=== PATIENT | male | born 1960 | race Caucasian/White ===

== ENCOUNTER 2023-04-12 15:45 | Emergency (ER) | payer OTHER ==
--- OUTSIDE RECORDS SUMMARY | 2023-04-12 15:53 | XMS REPORT | Continuity of Care Document ---
:1960 Author Organization [facility] t Address [address] [place] [address] Care Team Providers Name Role Phone Geremias Maravilla Attending Clinician Michael KAPLAN, Stoney Plummer Attending Clinician [phone] GEREMIAS TOTH Attending Clinician Unavailable Wilver KAPLAN, David Rossi Attending Clinician DAVID PETTIT Attending Clinician Unavailable Michael KAPLAN, Stoney Plummer Admitting Clinician [phone] Payers Payer Name Policy Type Policy Number Effective Date Expiration Date S pasquale MEDICARE PART A [id number] 2012 00:00:00 Problems Condition Condition Condition Status Onset Resolution Last Treating Co mments Source Name Details Category Date Date Treatment Clinician Date Stroke-lik Stroke-lik Disease Active 2020-0 U nivers e symptoms e symptoms 07-05 it y of 00:00: [address] No known No known Disease Unive rs active active ity of problems problems [facility] Allergies, Adverse Reactions, Alerts Allergy Allergy Status Severity Reaction(s) Onset Inactive Treating Comm ents Source Name Type Date Date Clinician TOMATO DRUG Active N/V 2020-0 Univers INGREDI 07-05 ity of 00:00: [place] [facility] VARENICL DRUG Active Hallucinates 2020-0 Un morelia INE INGREDI 07-05 ity of 00:00: 00 [facility] Varenicl Propensi Active Hallucinatio 2020-0 Univers ine ty to ns 07-05 ity of adverse 00:00: [place] reaction 00 [facility] Tomato Propensi Active Nausea 2020-0 Univers ty to and/or 07-05 ity of adverse Vomiting 00:00: [place] reaction 00 [facility] Seafood/ Propensi Active Anaphylaxis 2020-0 U nivers Fish ty to 07-04 ity of adverse 00:00: [place] reaction 00 Medical s Branch SEAFOOD/ Food Active Anaphylaxis 2020-0 Uni vers FISH 07-04 ity of 00:00: [place] 00 Medical Branch Social History Social Habit Start Date Stop Date Quantity Comments Source Sex Assigned At [facility] Exposure to Not sure [facility] SARS-CoV-2 (event) [facility] Tobacco use and 2020-07-05 2020-07-05 Never used [facility] exposure 00:00:00 00:00:00 Medical Branch History VTOH 2020-07-05 2020-07-05 21 University o [facility] [place] [facility] Education 00:00:00 00:00:00 Medical Branch History [facility] 2020-07-05 2020-07-05 3 [place] o [facility] [place] [facility] Financial 00:00:00 00:00:00 [facility] Branch Smoking Status Start Date Stop Date Source Current every day smoker 2020-07-05 00:[facility] Unknown if ever smoked [facility] Medications Ordered Filled Start Stop Current Ordering Indication Dosage Frequency Signature Comments Components Source Medication Medication Date Date Medication? Clinician (SIG) Name Name aspirin 2020-0 Yes 81mg 81 mg, Univers chewable 930 Oral, ity of tablet 81 14:00: DAILY, [place] mg 00 First dose Medical on Sat07/06/20 at 0900, Until Discontinu ed, Routine clopidogreL 2020-0 Yes 75mg 75 mg, Univ ers (PLAVIX) 9-30 Oral, ity of tablet 75 14:00: DAILY, [place] mg 00 First dose Medical on Sat07/06/20 at 0900, Until Discontinu ed, Routine atorvastati 2020-0 Yes 80mg 80 mg, Univ ers n (LIPITOR) 9-30 Oral, QHS, it y of tablet 80 02:00: [place] 00 (after Medical last Branch modificati on) on Sat07/05/20 at 2100, Until Discontinu ed, Routine famotidine 2020-0 Yes 20mg 20 mg, Unive rs (PEPCID AC) 9-30 Oral, BID, it y of tablet 20 01:00: [place] 00 on Sat07/05/20 at Branch 2000, Until Discontinu ed, Routine heparin 2020-0 Yes 5000U 5,000 Univers (porcine) 9-30 Units, ity of injection 01:00: [place]cutaneo [place] 5,000 Units 00 us, Q12H, Med ical First dose Branch on Sat07/05/20 at 2000, Until Discontinu ed, Routine aspirin 81 2020-0 Yes [id number] 81mg Take 1 U nivers mg chewable 9-30 tablet by ity of tablet 00:00: mouth [place] 00 daily. Medical Branch clopidogreL 2019-0 Yes [id number] 75mg Take 1 Univers 75 mg 9-30 tablet by ity of tablet 00:00: mouth [place] 00 daily. Medical Branch aspirin 2019-0 2020- No 325mg 325 mg, Unive rs tablet 325 07-05 Oral, ONCE it y of mg 23:45: 23:03 NOW, 1 [place] 00 :00 dose, [facility] Medical 07/05/20 at Branch 1845, DAVID NaCl 0.9% 0 Yes 1000mL at 75 Unive rs (NS) IV 9- mL/hr, IV ity of infusion 20:45: Infusion, [place] 1[place]000 mL 00 CONTINUOUS Medic al , Starting Branch [facility] 07/05/20 at 1545, Until Discontinu ed, Routine
To keep vein open.
labetaloL 0 Yes 10mg 10 mg, Univer s (NORMODYNE) 07-05 Slow IV ity o f injection 20:38: Push, PRN, [place] 10 mg 40 Starting Medical [facility] Branch 07/05/20 at 1538, Until Discontinu ed, Routine, Hypertensi on SBP > 220 and DBP > 110 iohexol 2019- No 100mL 100 mL, Unive rs (OMNIPAQUE 07-05 Intravenou it y of 350 05:45: 06:00 s, ONCE, 1 [place] BULK-100 00 :00 dose, [facility] Medica l mL) 07/05/20 at Branch injection 0100, 100 mL Routine NaCl 0.9% 0 2020- No 1000mL at 999 Uni vers (NS) bolus 07-05 mL/hr, ity of infusion 05:30: 06:48 1,000 mL, Gil as 1,000 mL 00 :00 IV Medical Infusion, Branch ONCE, 1 dose, [facility] 07/05/20 at 0030, DAVID meclizine 2020- No 25mg 25 mg, Unive rs (TRAVEL-EAS 07-05 Oral, ity of E 02:45: 02:00 ONCE, 1 [place] (MECLIZINE) 00 :00 dose, Mon Med ical ) tablet 25 07/04/20 at Br anch mg 2145, DAVID meclizine Yes [id number] 25mg Take 1 U nivers 25 mg 07-05 tablet by ity of tablet 00:00: mouth [place] 00 every 6 Medical (six) Branch hours. atorvastati Yes [id number] 80mg Take 1 Univers n 80 mg 07-05 tablet by ity of tablet 00:00: mouth at [place] 00 bedtime. Medical Branch meclizine 2020- No [id number] 25mg Take 1 Univers 25 mg 07-05 tablet by ity of tablet 00:00: 00:00 mouth [place] 00 :00 every 6 Medical (six) Branch hours. No known No Univers medications [facility] [place] [facility] Vital Signs Vital Name Observation Time Observation Value Comments Source Systolic blood 2020-07-05 20:27:00 151 mm[Hg] Univer sity [facility] Diastolic blood 2020-07-05 20:27:00 83 mm[facility]Hg[facility] 2020-07-05 20:27:00 58 /min [facility] Body temperature 2020-07-05 20:27:00 36.56 Zenaida [facility] Respiratory rate 2020-07-05 20:27:00 18 /min [facility] Oxygen saturation in 2020-07-05 20:27:00 98 /min [facility] Arterial blood by [facility] Pulse oximetry Branch Body weight 2020-07-05 15:23:00 95.255 kg [facility] Systolic blood 2020-07-05 04:59:00 147 mm[Hg] Univer sity [facility] Diastolic blood 2020-07-05 04:59:00 86 mm[Hg] Unive rsity [facility] Heart rate 2020-07-05 04:59:00 53 /min [facility] Body temperature 2020-07-05 04:59:00 37.17 Zenaida [facility] Respiratory rate 2020-07-05 04:59:00 12 /min [facility] Body weight 2020-07-05 04:59:00 99.791 kg [facility] Oxygen saturation in 2020-07-05 04:59:00 97 /min [facility] Arterial blood by [facility] Pulse oximetry Branch Systolic blood 2020-07-05 03:30:00 148 mm[Hg] Univer sity of pressure [facility] Diastolic blood 2020-07-05 03:30:00 94 mm[Hg] [facility] Heart rate 2020-07-05 03:30:00 50 /min [facility] Respiratory rate 2020-07-05 03:30:00 14 /min [facility] Oxygen saturation in 2020-07-05 03:30:00 97 /min [facility] Arterial blood by [facility] Pulse oximetry Branch Body temperature 2020-07-05 01:20:00 35.83 Zenaida [facility] Body weight 2020-07-05 01:20:00 99.791 kg [facility] Procedures Procedure Date / Time Performing Clinician Source Performed TROPONIN I 2020-07-05 18:45:00 Geremias Toth [facility] THYROID STIMULATING 2020-07-05 18:45:00 Alcala Durga [facility] HORMONE [facility] HEPATIC FUNCTION PANEL 2020-07-05 18:45:00 TothGeremias pacheco [facility] ([id number]) (ALB,T.PRO,BILI [facility] Branch T,BU/BC,ALT,AST,ALK PHOS) BASIC METABOLIC PANEL 2020-07-05 18:45:00 TothGeremias pacheco [facility] (NA, K, CL, CO2, Medical Branch GLUCOSE, BUN, CREATININE, CA) EKG-12 LEAD 2020-07-05 17:09:45 Greemias Toth [facility] CONSENT/REFUSAL FOR 2020-07-05 14:59:14 Doctor Unassigned, No Un [facility] DIAGNOSIS AND TREATMENT Name Medical [place] [facility] ANGIOGRAM HEAD 2020-07-05 05:44:53 David Pettit [facility] CT ANGIOGRAM NECK 2020-07-05 05:44:53 David Pettit [facility] NOTICE OF PRIVACY 2020-07-05 04:54:35 Doctor Unassigned, No [facility] PRACTICES Name Medical Branch CONSENT/REFUSAL FOR 2020-07-05 04:54:13 Doctor Unassigned, No [facility] DIAGNOSIS AND TREATMENT Name Medical Branch COVID-19 (ID NOW RAPID 2020-07-05 02:46:00 David Pettit [facility] TESTING) Medical Branch CT HEAD WO CONTRAST 2020-07-05 01:57:03 David Pettit [facility] TROPONIN I 2020-07-05 01:49:00 David Pettit [facility] BASIC METABOLIC PANEL 2020-07-05 01:49:00 David Pettit [facility] (NA, K, CL, CO2, Medical Branch GLUCOSE, BUN, CREATININE, CA) CBC WITH DIFF 2020-07-05 01:49:00 David Pettit [facility] N-TERMINAL PRO-BNP 2020-07-05 01:49:00 David Pettit [facility] GLYCOSYLATED HEMOGLOBIN 2020-07-05 01:49:00 Durga Tse [facility] (A1C) [facility] Branch CONSENT/REFUSAL FOR 2020-07-05 01:15:15 Doctor Unassigned, No Un [facility] DIAGNOSIS AND TREATMENT Name Medical Branch Encounters Start End Encounter Admission Attending Care Care Encounter Source Date/Time Date/Time Type Type Clinicians Facility Department ID 2020-07-05 2020-07-05 Geremias Pan [id number] Univers 10:27:00 19:00:00 [facility] [place] as [id number] [facility] 09 Branch 2020-07-05 2020-07-05 Emergency Kenroy TOTH [facility] ERT [id number] Univers 10:27:00 10:27:00 GEREMIAS العراقي [facility] 2020-07-04 2020-07-05 Emergency [facility] [id number] Univers 23:56:00 01:55:00 David Vides [id number] i ty of [place] 4.2.7.2.686 [facility] [id number] [address] 2020-07-04 2020-07-04 [facility] [id number] Univers 23:56:00 23:56:00 General acute hospital 2020-07-04 2020-07-04 Emergency [facility] [id number] Univers 20:13:00 23:50:00 David Vides [id number] i ty [facility] 4.2.7.2.686 [facility] [id number] [address] 2020-07-04 2020-07-04 Emergency [facility] [id number] Univers 20:13:00 20:13:00 General acute hospital Results Test Description Test Time Test Comments Results Result Comments Source THYROID STIMULATING HORMONE 2020-07-06 00:18:00 Test Item Value Reference Range Interpretation Comme nts TSH (test code = 8116001531) See_Comment Biotin has been reported to cause a negative bias , interpret results relativ e to patient's use of biotin. [Aut omated message] The system [employer] generated this result transmit danny reference range: 0.45 - 4 .70 mIU/L. The reference range was not used to interpret this result as normal/abnormal . Lab Interpretation (test code = Normal 57889-8) [facility] H[facility]GLOB[facility] (A1C)2020-07-06 00:04:00 Test Item Value Reference Range Interpretation Comments HGB A1C (test code = 5.0 % 4-6 4548-4) JOSE (test code = JOSE) %A1C (NGSP) Interpretation (ADA)4.8-5.6 ? ? Normal or (Non-Diabetic Range)5.7-6.4 ? ? Increased Risk (Pre-Diabetic)>6.5 ?Diabetes Indicated Lab Interpretation Normal (test code = 18284-2) [facility] (ALB, T.PRO, BILI T, BU/BC, ALT, AST, ALK PHOS)2020-07-05 19:38:00 Test Item Value Reference Range Interpretation Comments TOTAL BILI (test code = 1022343271) 0.7 mg/dL 0.1-1.1 BILI UNCON (test code = 3365661255) 0.7 mg/dL 0.1-1.1 BILI CONJ (test code = 7411516256) 0.0 mg/dL 0-0.3 T PROTEIN (test code = 3589309589) 7.8 g/dL 6.3-8.2 ALBUMIN (test code = 7702924009) 4.3 g/dL 3.5-5 ALK PHOS (test code = 0534288264) 56 U/L 34-122 ALTv (test code = 1742-6) 25 U/L 5-50 AST(SGOT) (test code = 6949642239) 35 U/L 13-40 Lab Interpretation (test code = Normal 66521-5) [facility] [id number] 19:35:00 Test Item Value Reference Range Interpretation Comments TROPONIN I (test <0.012 See_Comment [Automated code = 9719109302) message] The system which generated this result transmitted reference range : <=0.034 ng/mL. The reference range was not used to interpr et this result as normal/abnormal . JOSE (test code = Equal or Less than JOSE) 0.034 ng/ml---Normal ?Note: Cardiac troponin begins to rise 3-4 hours after the onset of ischemia. Repeat in 4-6 hours if the sample was drawn within 3-4 hours of the onset of the symptom and found normal. Between 0.035 and 0.120 ng/mL--- Borderline. Questionable myocardial injury or necrosis ? ?Note: Serial measurement may be necessary to confirm or exclude the diagnosis of myocardial injury or necrosis; Clinical correlation (symptoms, EKGs, imaging studies, and others) required; Repeat in 4-6 hours if clinically indicated. ? Equal or Higher than 0.121 ng/mL---Abnormal. Myocardial Injury or Necrosis Likely ? Biotin has been reported to cause a negative bias, interpret results relative to patient's use of biotin. ? Lab Interpretation Normal (test code = 42072-9) [facility] Metabolic Panel (NA, K, CL, CO2, GLUCOSE, BUN, CREATININE, CA)2020-07-05 19:24:00 Test Item Value Reference Range Interpretation Comments NA (test code = 137 mmol/L 135-145 8341487743) K (test code = 4.6 mmol/L 3.5-5 4831122495) CL (test code = 99 mmol/L 98-108 4312545129) CO2 TOTAL (test code = 30 mmol/L 23-31 2039661122) AGAP (test code = 2-16 5653877662) BUN (test code = 21 mg/dL 7-23 0413008763) GLUCOSE (test code = 116 mg/dL 70-110 H 7803409631) CREATININE (test code = 0.80 mg/dL 0.6-1.25 6766751499) CALCIUM (test code = 9.5 mg/dL 8.6-10.6 9119808512) eGFR Calculation mL/min/1.73m2 (Non-) (test code = 4649233604) eGFR Calculation mL/min/1.73m2 () (test code = 6593003435) JOSE (test code = JOSE) Association of Glomerular Filtration Rate (GFR) and Staging of Kidney Disease* + --+ --+ ------+| GFR (mL/min/1.73 m2) ?| With Kidney Damage ?| ?Without Kidney Damage+ --------+ --------+ +| ?>90 ?| ?Stage one ?| ? Normal ?+ ---+ ---+ -------+| ?60-89 ?| ?Stage two ?| ? Decreased GFR ? + --+ --+ ------+| ?30-59 ?| ?Stage three ?| ? Stage three ? + --+ --+ ------+| ?15-29 ?| ?Stage four ? | ? Stage four ?+ ---+ ---+ -------+| ?<15 (or dialysis) ? ?| ?Stage five ? | ? Stage five ?+ ---+ ---+ -------+ *Each stage assumes the associated GFR level has been in effect for at least three months. ?Stages 1 to 5, with or without kidney disease, indicate chronic kidney disease. Notes: Determination of stages one and two (with eGFR >59mL/min/1.73 m2) requires estimation of kidney damage for at least three months as defined by structural or functional abnormalities of the kidney, manifested by either:Pathological abnormalities or Markers of kidney damage (including abnormalities in the composition of the blood or urine or abnormalities in imaging tests). Lab Interpretation Abnormal (test code = 02260-4) [facility] (ID NOW RAPID TESTING)2020-07-05 03:54:00 Test Item Value Reference Range Interpretation Comments SARS-CoV-2 Rapid ID NOW Not Detected Not Detected (test code = 62422-2) JOSE (test code = JOSE) ID NOW COVID-19 Assay is an isothermal nucleic acid amplification test intended for the qualitative detection of nucleic acid from SARS-CoV-2 viral RNA in nasopharyngeal (CHOIR MEMBER) specimens. It is used under Emergency Use Authorization (EUA) by FDA. The limit of detection (LOD) of the assay is 125 Genome Equivalents/mL. A positive result is indicative of the presence of SARS-CoV-2 RNA. ?Clinical correlation with patient history and other diagnostic information is necessary to determine patient infection status. A negative (Not Detected) result does not preclude SARS-CoV-2 infection. In patients with clinical symptoms and other tests that are consistent with SARS-CoV-2 infection, negative results should be treated as presumptive negative and a new specimen should be tested with alternative PCR molecular test. Invalid: Please collect a new specimen for repeat patient testing if clinically indicated. Lab Interpretation Normal (test code = 84843-0) [facility] Head W/O [id number] 02:41:52 No acute intracranial abnormality. Preliminary Report Dictated by Resident: Miguel Angel Ayon I, [place] Aguirre MD., have reviewed this study and agree with theabove report.CT HEAD WO CONTRAST HISTORY: Dizziness, persistent/recurrent, cardiac or vascular causesuspected COMPARISON: None TECHNIQUE: Noncontrast CT imaging of the head was performed and coronal andsagittal reconstructions were obtained and reviewed. FINDINGS: The ventricles and cerebral sulci are normal in caliber and configuration.No hydrocephalus, midline shift or pathological extra- axial fluidcollection is present. The basal cisterns are unremarkable. There is no acute intracranial hemorrhage or significant mass effect. Noparenchymal attenuation abnormality. The wilson-white matter differentiationis preserved. The mastoid air cells and paranasal air sinuses are clear. The calvariumand central skull base are unremarkable. 1.3 cm right frontal scalphypoattenuating lesion with calcifications is present which may representan partially calcified epidermal inclusion cyst. [facility], Radiant Results Inft User - 07/04/2020 9:43 PM CDTCT HEAD WO CONTRASTHISTORY: Dizziness, persistent/recurrent, cardiac or vascular causesuspected COMPARISON: NoneTECHNIQUE: Noncontrast CT imaging of the head was performed and coronal andsagittal reconstructions were obtained and reviewed.FINDINGS:The ventricles and cerebral sulci are normal in caliber and configuration.No hydrocephalus, midline shift or pathological extra-axial fluidcollection is present. The basal cisterns are unremarkable.There is no acute intracranial hemorrhage or significant mass effect. Noparenchymal attenuation abnormality. The wilson-white matter differentiationis preserved.The m astoid air cells and paranasal air sinuses are clear. The calvariumand central skull base are unremarkable. 1.3 cm right frontal scalphypoattenuating lesion with calcifications is present which may representan partially calcified epidermal inclusion cyst.IMPRESSIONNo acute intracranial abnormality.Preliminary Report Dictated by Resident: Miguel Angel Barkley, [place] Aguirre MD., have reviewed thisstudy and agree with theabove report.[facility]aleAncelmofranklin woods [facility] hospitalnatacha [id number] 02:19:00 Test Item Value Reference Range Interpretation Comments TROPONIN I (test 0.001 ng/mL See_Comment [Automated code = 2275443175) message] The system which generated this result transmitted reference range : <=0.034. The reference range was not used to interpret this result as normal/abnormal . JOSE (test code = Equal or Less than JOSE) 0.034 ng/ml---Normal ?Note: Cardiac troponin begins to rise 3-4 hours after the onset of ischemia. Repeat in 4-6 hours if the sample was drawn within 3-4 hours of the onset of the symptom and found normal. Between 0.035 and 0.120 ng/mL--- Borderline. Questionable myocardial injury or necrosis ? ?Note: Serial measurement may be necessary to confirm or exclude the diagnosis of myocardial injury or necrosis; Clinical correlation (symptoms, EKGs, imaging studies, and others) required; Repeat in 4-6 hours if clinically indicated. ? Equal or Higher than 0.121 ng/mL---Abnormal. Myocardial Injury or Necrosis Likely ? Biotin has been reported to cause a negative bias, interpret results relative to patient's use of biotin. ? Lab Interpretation Normal (test code = 23010-0) [facility]aleN-TERMINAL [id number] 02:16:00 Test Item Value Reference Range Interpretation Comments NT-proBNP (test code 78 pg/mL See_Comment [Autom ated = 1558728004) message] The system which generated this result transmitted reference range : <=125. The reference range was not used to interpret this result as normal/abnormal . JOSE (test code = JOSE) Biotin has been reported to cause a negative bias, interpret results relative to patient's use of biotin. Lab Interpretation Normal (test code = 41330-5) [facility] Metabolic Panel (NA, K, CL, CO2, GLUCOSE, BUN, CREATININE, CA)2020-07-05 02:07:00 Test Item Value Reference Range Interpretation Comments NA (test code = 137 mmol/L 135-145 9694086793) K (test code = 4.7 mmol/L 3.5-5 1126300105) CL (test code = 99 mmol/L 98-108 9953283551) CO2 TOTAL (test code = 27 mmol/L 23-31 5867073459) AGAP (test code = 2-16 4746035812) BUN (test code = 24 mg/dL 7-23 H 8646254060) GLUCOSE (test code = 132 mg/dL 70-110 H 1065729604) CREATININE (test code = 0.84 mg/dL 0.6-1.25 6333004299) CALCIUM (test code = 9.6 mg/dL 8.6-10.6 9381297512) eGFR Calculation mL/min/1.73m2 (Non-) (test code = 3885778011) eGFR Calculation mL/min/1.73m2 () (test code = 1506694023) JOSE (test code = JOSE) Association of Glomerular Filtration Rate (GFR) and Staging of Kidney Disease* + --+ --+ ------+| GFR (mL/min/1.73 m2) ?| With Kidney Damage ?| ?Without Kidney Damage+ --------+ --------+ +| ?>90 ?| ?Stage one ?| ? Normal ?+ ---+ ---+ -------+| ?60-89 ?| ?Stage two ?| ? Decreased GFR ? + --+ --+ ------+| ?30-59 ?| ?Stage three ?| ? Stage three ? + --+ --+ ------+| ?15-29 ?| ?Stage four ? | ? Stage four ?+ ---+ ---+ -------+| ?<15 (or dialysis) ? ?| ?Stage five ? | ? Stage five ?+ ---+ ---+ -------+ *Each stage assumes the associated GFR level has been in effect for at least three months. ?Stages 1 to 5, with or without kidney disease, indicate chronic kidney disease. Notes: Determination of stages one and two (with eGFR >59mL/min/1.73 m2) requires estimation of kidney damage for at least three months as defined by structural or functional abnormalities of the kidney, manifested by either:Pathological abnormalities or Markers of kidney damage (including abnormalities in the composition of the blood or urine or abnormalities in imaging tests). Lab Interpretation Abnormal (test code = 05046-5) [facility] with [id number] 01:55:00 Test Item Value Reference Range Interpretation Comments WBC (test code = See_Comment H [Automated 8090-2) message] The sy stem which generated this result transmitted reference range : 4.20 - 10.70 10*3/?L. The reference range was not used to interpret this result as normal/abnormal . RBC (test code = See_Comment L [Automated 379-8) message] The sy stem which generated this result transmitted reference range : 4.26 - 5.52 10*6/?L. The reference range was not used to interpret this result as normal/abnormal . HGB (test code = 14.3 g/dL 12.2-16.4 718-7) HCT (test code = 43.0 % 38.4-49.3 4544-3) MCV (test code = 112.9 fL 81.7-95.6 H 787-2) MCH (test code = 37.5 pg 26.1-32.7 H 785-6) MCHC (test code = 33.3 g/dL 31.2-35 786-4) RDW-SD (test code = 57.4 fL 38.5-51.6 H 44049-6) RDW-CV (test code = 13.5 % 12.1-15.4 788-0) PLT (test code = See_Comment [Automated 777-3) message] The sy stem which generated this result transmitted reference range : 150 - 328 10*3/ ?L. The reference r laureen was not used to interpret this result as normal/abnormal . MPV (test code = 9.1 fL 9.8-13 L 55299-2) NRBC/100 WBC (test See_Comment [Automat ed code = [id number]) message] The system which generated this result transmitted reference range : 0.0 - 10.0 /100 WBCs. The refer ence range was not u sed to interpret th is result as normal/abnormal . NRBC x10^3 (test code <0.01 See_Comment [Auto mated = [id number]) message] The s ystem which generated this result transmitted reference range : 10*3/?L. The reference range was not used to interpret this result as normal/abnormal . GRAN MAT (NEUT) % 78.7 % (test code = 770-8) IMM GRAN % (test code 0.80 % = [id number]) LYMPH % (test code = 15.3 % 736-9) MONO % (test code = 4.5 % 5905-5) EOS % (test code = 0.3 % 713-8) BASO % (test code = 0.4 % 706-2) GRAN MAT x10^3(ANC) 9.08 10*3/uL 1.99-6.95 H (test code = 5266192341) IMM GRAN x10^3 (test 0.09 10*3/uL 0-0.06 H code = 7251543929) LYMPH x10^3 (test code 1.76 10*3/uL 1.09-3.23 = 731-0) MONO x10^3 (test code 0.52 10*3/uL 0.36-1.02 = 742-7) EOS x10^3 (test code = 0.04 10*3/uL 0.06-0.53 L 711-2) BASO x10^3 (test code 0.05 10*3/uL 0.01-0.09 = 704-7) Lab Interpretation Abnormal (test code = 12221-3) [facility]"
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
[2023-04-12 17:00] VITALS: BP 156/97; TEMP 98.1; O2SAT 95
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
== END 2023-04-12 16:55 | disposition home or self-care (01) ==
LOC: ER 15:45
DX: S16.1XXA Strain of muscle, fascia and tendon at neck level, initial encounter (principal); S20.219A Contusion of unspecified front wall of thorax, initial encounter; V49.49XA Driver injured in collision with other motor vehicles in traffic accident, initial encounter; I10 Essential (primary) hypertension; F17.210 Nicotine dependence, cigarettes, uncomplicated; Z88.8 Allergy status to other drugs, medicaments and biological substances; Z91.013 Allergy to seafood
CPT/HCPCS: 71045; 72040; 99284